=== PATIENT | male | born 1975 | race Caucasian/White ===

== ENCOUNTER 2016-11-17 00:42 | Emergency (ER) | payer BC, OTHER ==
[2016-11-17 00:49] VITALS: BP 124/88; PULSE 87; TEMP 97.6; BMI 30.3
--- NOTE | 2016-11-17 01:02 | PDOC ---
History of Present Illness - General Chief Complaint: Wound Stated Complaint: BURSITIS SURGERY/SUTURES TORE 2 DAYS AGO Time Seen by Provider: 11/17/16 00:45 History Source: Patient Exam Limitations: No Limitations - History of Present Illness Initial Comments: 11/17/16 00:57 41 yo M with no pmhx here s/p drainage of bursitis of the right elbow. was in [place], had I &D performed. was at home 2 days ago it released, stitches ripped. here tonight because was concerned. no f/c no pain. no purulent drainage. no other complaints. Past History - Past Medical History Allergies/Adverse Reactions: Allergies Allergy/AdvReac Type Severity Reaction Status Date / Time No Known Drug Allergies Allergy Verified 05/16/15 09:26 Home Medications: Ambulatory Orders Allopurinol [Zyloprim -] 400 mg PO DAILY 05/24/14 Rivaroxaban [Xarelto -] 20 mg PO DAILY 05/24/14 Asthma: No Cardiac Disorders: No DVT: Yes Diabetes: No HTN: No Hypercholesterolemia: No Suicide Attempt (Hx): No - Surgical History Lung Surgery: No (tonsilectomy) Orthopedic Surgery: Yes (left knee miniscus) - Immunization History Td Vaccination: Yes TDAP Vaccination: Yes Immunization Up to Date: Yes - Psycho/Social/Smoking Cessation Hx Anxiety: No Suicidal Ideation: No Smoking Status: No Smoking History: Never smoked Have you smoked in the past 12 months: No Number of Cigarettes Smoked Daily: 0 Cigars Per Day: 0 Information on smoking cessation initiated: No Hx Alcohol Use: No Drug/Substance Use Hx: No Substance Use Type: None Hx Substance Use Treatment: No Review of Systems - Review of Systems Constitutional: No: Chills, Diaphoresis, Fever Respiratory: No: Cough, Orthopnea Cardiac (ROS): No: Chest Pain, Edema Musculoskeletal: No: Back Pain, Joint Pain Integumentary: Yes: Other (laceration/ wound to right elbow). No: Bruising, Change in Color *Physical Exam - Vital Signs Last Vital Signs Temp Pulse Resp BP Pulse Ox 97.6 F 87 16 124/88 96 11/17/16 00:46 11/17/16 00:46 11/17/16 00:46 11/17/16 00:46 11/17/16 00:46 - Physical Exam General Appearance: Yes: Nourished Respiratory/Chest: positive: Lungs Clear, Normal Breath Sounds Cardiovascular: positive: Regular Rhythm, Regular Rate, S1, S2. negative: Edema Gastrointestinal/Abdominal: positive: Normal Bowel Sounds. negative: Tender, Flat Musculoskeletal: positive: Normal Inspection Extremity: positive: Normal Inspection, Other (right elbow, wound 2 cm gaping, draining serous fluid.) Integumentary: positive: Normal Color, Dry, Warm Neurologic: positive: Fully Oriented, Alert, Normal Mood/Affect Medical Decision Making - Medical Decision Making 11/17/16 01:02 pt with open wound right elbow, 2 days old. unable to stitch due to risk of infection. will apply sterile dressing. given plastic surgery followup. told to return for any signs of infection and keep clean and covered until followup. *DC/Admit/Observation/Transfer Diagnosis at time of Disposition: Dehiscence of wound - Discharge Dispostion Disposition: HOME Condition at time of disposition: Stable Admit: No - Referrals Referrals: Franky Lindquist MD [Staff Physician] - - Patient Instructions Printed Discharge Instructions: Wound Dehiscence Additional Instructions: follow up with dr lindquist. call to schedule. keep wound clean and dry. cover with sterile guaze and bne wrap. return for redness swelling or any concerns.
== END 2016-11-17 01:07 | disposition home or self-care (01) ==
LOC: FER 00:42
DX: T81.31XA Disruption of external operation (surgical) wound, not elsewhere classified, initial encounter (principal); Y83.8 Other surgical procedures as the cause of abnormal reaction of the patient, or of later complication, without mention of misadventure at the time of the procedure
CPT/HCPCS: 99281-25

== ENCOUNTER 2017-01-15 20:39 | Emergency (ER) | payer OTHER ==
--- NOTE | 2017-01-15 21:41 | PDOC ---
History of Present Illness - History of Present Illness Initial Comments: 01/15/17 21:46 The patient is a 39 year old male, with a significant past medical history of bilateral lower extremity DVT and gout, who presents to the emergency department with pain to his right foot since yesterday. The patient states he was gout free for years, until he got an upset stomach yesterday and drank the magnesium drink. He states he realized right after he drank the magnesium drink that it might exacerbate his gout. He reports developing pain and swelling to his right foot shortly after. He states medrol dose packs work best for my gout. He denies chest pain, shortness of breath, headache and dizziness. He denies fever, chills, nausea, vomit, diarrhea and constipation. He denies dysuria, frequency, urgency and hematuria. Allergies: None Past surgical history: Tonsillectomy, Left meniscus surgery Social history: He denies tobacco, alcohol and drug use <Judy Nguyen - Last Filed: 01/15/17 21:51> <Lilibeth Grier - Last Filed: 01/16/17 01:56> - General Chief Complaint: Pain Stated Complaint: POSS GOUT ATTACK Time Seen by Provider: 01/15/17 20:53 Past History <Judy Nguyen - Last Filed: 01/15/17 21:51> - Past Medical History Asthma: No Cardiac Disorders: No DVT: Yes Diabetes: No HTN: No Hypercholesterolemia: No - Surgical History Lung Surgery: No (tonsilectomy) Orthopedic Surgery: Yes (left knee miniscus) - Immunization History Td Vaccination: Yes TDAP Vaccination: Yes Immunization Up to Date: Yes - Suicide/Smoking/Psychosocial Hx Smoking Status: No Smoking History: Unknown if ever smoked Have you smoked in the past 12 months: No Number of Cigarettes Smoked Daily: 0 Cigars Per Day: 0 Information on smoking cessation initiated: No Hx Alcohol Use: No Drug/Substance Use Hx: No Substance Use Type: None Hx Substance Use Treatment: No <Lilibeth Grier - Last Filed: 01/16/17 01:56> - Past Medical History Allergies/Adverse Reactions: Allergies Allergy/AdvReac Type Severity Reaction Status Date / Time No Known Drug Allergies Allergy Verified 05/16/15 09:26 Home Medications: Ambulatory Orders Rivaroxaban [Xarelto -] 20 mg PO DAILY 05/24/14 Methylprednisolone [Medrol Dose Cezar] 4 mg PO ASDIR #21 tablet 01/15/17 Review of Systems - Review of Systems Able to Perform ROS?: Yes Comments:: 01/15/17 21:46 CONSTITUTIONAL: Absent: fever, no chills, no fatigue EYES: Absent: visual changes ENT: Absent: ear pain, no sore throat CARDIOVASCUL R: Absent: chest pain, no palpitations RESPIRATORY: Absent: cough, no SOB GI: Absent: abdominal pain, no nausea, no vomiting, no constipation, no diarrhea GENITOURINARY: Absent: dysuria, no frequency, no hematuria MUSKULOSKELETAL: (+) right foot pain and swelling, "Gout". Absent: back pain, no arthralgia, no myalgia SKIN: Absent: rash NEURO: Absent: headache <Judy Nguyen - Last Filed: 01/15/17 21:51> *Physical Exam - Vital Signs Last Vital Signs Temp Pulse Resp BP Pulse Ox 98.3 F 88 14 126/90 98 01/15/17 20:43 01/15/17 20:43 01/15/17 20:43 01/15/17 20:43 01/15/17 20:43 - Physical Exam Comments: 01/15/17 21:47 GENERAL: The patient is awake, alert, and fully oriented, in no acute distress. HEAD:[Normal with no signs of trauma. EYES: Pupils equal, round and reactive to light, extraocular movements intact, sclera anicteric, conjunctiva clear. EXTREMITIES: (+) 2cm x 2cm area of erythematous, markedly tender,and moderately edematous at the dorsal aspect by the base of 5th toe of right foot. Normal range of motion, NEUROLOGICAL: Normal speech, normal gait. PSYCH: Normal mood, normal affect. SKIN: Warm, Dry, normal turgor, no rashes or lesions noted. <Judy Nguyen - Last Filed: 01/15/17 21:51> - Vital Signs Last Vital Signs Temp Pulse Resp BP Pulse Ox 98.3 F 88 14 126/90 98 01/15/17 20:43 01/15/17 20:43 01/15/17 20:43 01/15/17 20:43 01/15/17 20:43 <Lilibeth Grier - Last Filed: 01/16/17 01:56> Medical Decision Making - Medical Decision Making Documentation has been prepared under my direction and personally reviewed by me in its entirety. I attest that this documented accurately reflects all work, treatment, procedures and medical decision making performed by me. As noted above, this 41-year-old man with a history of gout in the past presents with a few day history of painful, erythematous area at the base of the right fifth toe there has been no injury to this area and patient states that it feels very similar to previous episodes of acute gout. Patient believes that this episode resulted after he drank magnesium citrate a few days ago(treating constipation). Patient also stated that in the past, the most effective treatment for his acute episodes of gout was Medrol Dosepak Exam as noted Prescription for Medrol Dosepak sent to the patient's pharmacy. He should drink plenty fluids and avoid other triggers for acute gout. He should return to the emergency room if he has persistent pain/swelling/redness of the joint. He should follow-up with his general doctor within the next few days. <Lilibeth Grier - Last Filed: 01/16/17 01:56> *DC/Admit/Observation/Transfer - Attestations Scribe Attestion: 01/15/17 21:55 Documentation prepared by Judy Nguyen, acting as medical records field technician for Lilibeth Grier MD <Judy Nguyen - Last Filed: 01/15/17 21:51> <Lilibeth Grier - Last Filed: 01/16/17 01:56> Diagnosis at time of Disposition: Acute gout Qualifiers: Gout site: foot Gout etiology: drug-induced Laterality: right Qualified Code(s) : M10.271 - Drug-induced gout, right ankle and foot - Discharge Dispostion Disposition: HOME Condition at time of disposition: Stable - Prescriptions Prescriptions: Methylprednisolone [Medrol Dose Cezar] 4 mg PO ASDIR #21 tablet - Referrals Referrals: Fritz Ward MD [Primary Care Provider] - - Patient Instructions Printed Discharge Instructions: Gout Additional Instructions: Medrol Dosepak, tapering directed Drink plenty of fluids Return to ER if you have persistent pain/swelling/redness Follow-up with your general doctor within the next week
[2017-01-15 21:50] VITALS: BP 126/90; PULSE 88; TEMP 98.3; BMI 30.3
== END 2017-01-15 21:53 | disposition home or self-care (01) ==
LOC: FER 20:39
DX: M10.271 Drug-induced gout, right ankle and foot (principal); Z86.718 Personal history of other venous thrombosis and embolism; Z79.01 Long term (current) use of anticoagulants
CPT/HCPCS: 99282-25

== ENCOUNTER 2019-02-10 13:06 | Day surgery (SDC) | payer OTHER ==
[2019-02-08 11:42] VITALS: BMI 30.9
[2019-02-10] MEDS ORDERED: MIDAZOLAM HCL 2 MG/2 ML SINGLE DOSE VIAL ONE (16:46)
[2019-02-10] MEDS ORDERED: LIDOCAINE HCL 2% 100 MG/5 ML DISP.SYRIN ONE (17:37)
[2019-02-10] MEDS ORDERED: ceFAZolin SODIUM 1 GM VIAL ONE (17:43)
[2019-02-10] MEDS ORDERED: ONDANSETRON 4 MG/2 ML VIAL ONE (17:44)
[2019-02-10] MEDS ORDERED: DEXAMETHASONE SOD PHOSPHATE 4 MG/1 ML VIAL ONE (17:44)
[2019-02-10] MEDS ORDERED: KETOROLAC TROMETHAMINE 30 MG/1 ML VIAL ONE (17:44)
[2019-02-10] MEDS ORDERED: BUPIVACAINE HCL/PF 0.5% (5MG/ML) 10 ML VIAL IJ ONE (18:35)
[2019-02-10] MEDS ORDERED: ONDANSETRON 4 MG/2 ML VIAL IVPUSH PRN (18:56)
[2019-02-10] MEDS ORDERED: oxyCODONE HCL 5 MG TABLET PO PRN ×2 (18:56)
[2019-02-10] MEDS ORDERED: LACTATED RINGERS SOLUTION 1,000 ML IV SCH (19:00)
[2019-02-10] MEDS ORDERED: oxyCODONE HCL 5 MG TABLET ONE (19:53)
[2019-02-10 21:02] VITALS: TEMP 97.7
[2019-02-10 21:08] VITALS: BP 126/90; PULSE 83
--- NOTE | 2019-02-11 13:24 | OP ---
DATE OF OPERATION: 02/10/2019 PREOPERATIVE DIAGNOSES: 1. Right elbow gouty tophus. 2. Right elbow olecranon bursitis. POSTOPERATIVE DIAGNOSES: 1. Right elbow gouty tophus. 2. Right elbow olecranon bursitis. OPERATIVE PROCEDURE: 1. Excised right elbow gouty tophus. 2. Right elbow olecranon bursectomy. SURGEON: Olayinka Betancur MD CAR DROPPER: ANDREA Back ANESTHESIA: General. COMPLICATIONS: None. ESTIMATED BLOOD LOSS: Minimal. INDICATION FOR PROCEDURE: The patient is a 43-year-old male with the above finding, indicated for operative treatment. Risks, benefits, and alternatives were discussed with the patient at length. Proper informed consent was obtained. PROCEDURE: After proper identification of patient and correct operative site, patient was brought to the operating room and placed supine on the operative table. Prominences were well padded. Right upper extremity was prepped and draped in usual sterile fashion. Well-padded tourniquet was placed as well as a sterile prep. Esmarch bandage was used to exsanguinate the right upper extremity. Tourniquet was inflated to 250 mmHg. A curvilinear incision was made over the olecranon process, curving the incision laterally to avoid being directly over the elbow olecranon tip. The incision was taken sharply through the skin, with blunt and sharp dissection through the subcutaneous tissues and around the mass which was found to be gouty tophus. This was dissected carefully, especially on the ulnar side of the elbow. The ulnar nerve was carefully protected. Diffuse invasion of the skin and subcutaneous tissues and tendon was also noted by the gouty tissue, and this was debrided as well as possible while leaving vital structures intact. The olecranon bursa was also excised. The incision was then repaired in a [id number] fashion using 4-0 nylon sutures and 4-0 Vicryl sutures. Sterile dressings were applied. An elbow-extension splint was placed to protect the wound. The patient was reversed from anesthesia and brought to recovery in stable condition. He tolerated the procedure well. Ted Bianchi, the surgical first assistant, was integral throughout the procedure. Procedure could not have been performed without a skilled operative surgical first assistant. Fazal CASTILLO/[id number]
--- NOTE | 2019-02-15 17:32 | PATH ---
Surgical Pathology Report Patient Name: AMAURI TOVAR [facility]. Rec. #: [id number] /Age/Gender: 1975 (Age: 43) / M Account: [id number] Location: [facility] Taken: 02/10/2019 Received: 02/11/2019 Reported: 02/15/2019 Physicians: Olayinka Betancur M.D. Specimen(s) Received GOUTY TOPHUS RIGHT ELBOW Clinical History Right elbow olecranon gouty bursitis Final Diagnosis ELBOW, RIGHT, GOUTY TOPHUS, EXCISION: FIBROSYNOVIAL TISSUE WITH NODULAR DEPOSITS OF CRYSTALLINE MATERIAL SURROUNDED BY FIBROUS TISSUE, HISTIOCYTES AND GIANT CELLS; CONSISTENT WITH GOUTY TOPHI. Electronically Signed Abbey Gaines M.D. Gross Description Received in formalin labeled "gouty tophus right elbow," is a 4.8 x 4.0 x 1.7 cm kessler-yellow soft tissue mass. Sectioning reveals white, chalky parenchyma. Information Assistant sections are submitted in one cassette. /02/12/2019 [facility]/02/12/2019
== END 2019-02-10 20:30 | disposition home or self-care (01) ==
LOC: FASU 13:06
PROVIDERS: ATTEND Orthopaedic Surgery Hand Surgery
PROC: 0MB30ZZ Excision of Right Elbow Bursa and Ligament, Open Approach (ICD-10-PCS; principal; 2019-02-10 17:54)
DX: M1A.0211 Idiopathic chronic gout, right elbow, with tophus (tophi) (principal)
CPT/HCPCS: 88304-TC; 94760

== ENCOUNTER 2021-05-30 07:14 | Day surgery (SDC) | payer OTHER ==
[2021-05-24 12:42] VITALS: BMI 32.3
[2021-05-30] MEDS ORDERED: LIDOCAINE HCL 2% (20ML MULTI-DOSE VIAL) ONE (08:37)
[2021-05-30] MEDS ORDERED: ONDANSETRON 4 MG/2 ML VIAL IVPUSH PRN (08:41)
[2021-05-30] MEDS ORDERED: oxyCODONE HCL 5 MG TABLET PO PRN ×2 (08:41)
[2021-05-30] MEDS ORDERED: PROMETHAZINE HCL 25 MG/1 ML VIAL IVPUSH PRN (08:41)
[2021-05-30] MEDS ORDERED: PROPOFOL 20 ML ONE (08:44)
[2021-05-30] MEDS ORDERED: MIDAZOLAM HCL 2 MG/2 ML SINGLE DOSE VIAL ONE (08:44)
[2021-05-30] MEDS ORDERED: LACTATED RINGERS SOLUTION 1,000 ML IV SCH (08:45)
[2021-05-30] MEDS ORDERED: BUPIVACAINE HCL/PF 0.25% (2.5MG/ML) 10 ML VIAL ONE (09:30)
[2021-05-30] MEDS ORDERED: BUPIVACAINE HCL/PF 0.25% (2.5MG/ML) 10 ML VIAL IJ ONE (09:35)
[2021-05-30] MEDS ORDERED: oxyCODONE HCL 5 MG TABLET ONE (10:29)
[2021-05-30 10:55] VITALS: TEMP 97.7
[2021-05-30 11:18] VITALS: BP 142/90; PULSE 90
== END 2021-05-30 11:12 | disposition home or self-care (01) ==
LOC: FASU 07:14
PROVIDERS: ATTEND Orthopaedic Surgery Hand Surgery
PROC: 0LQ80ZZ Repair Left Hand Tendon, Open Approach (ICD-10-PCS; 2021-05-30)
PROC: 0LB80ZZ Excision of Left Hand Tendon, Open Approach (ICD-10-PCS; principal; 2021-05-30 08:59)
DX: D21.12 Benign neoplasm of connective and other soft tissue of left upper limb, including shoulder (principal); M1A.9XX1 Chronic gout, unspecified, with tophus (tophi); M66.242 Spontaneous rupture of extensor tendons, left hand
CPT/HCPCS: 88305-TC; 94760

== ENCOUNTER 2022-05-19 13:14 | Emergency (ER) | payer OTHER ==
[2022-05-19 13:26] VITALS: BP 125/98; PULSE 87; RESP 18; TEMP 97.8; BMI 30.9
[2022-05-19] MEDS ORDERED: INDOMETHACIN 50 MG CAPSULE PO ONE (13:49)
[2022-05-19] MEDS ORDERED: INDOMETHACIN 25 MG CAPSULE ONE (14:00)
[2022-05-19 14:23] LABS: HEMATOCRIT 42.5 % (35.4-49); HEMOGLOBIN 14.6 G/dL (11.7-16.9); MCH 27.9 pg (25.7-33.7); MCHC 34.4 g/dl (32.0-35.9); MEAN CELL VOLUME 81.3 fl (80-96); MEAN PLT VOLUME 8.7 fl (7.5-11.1); PLATELET COUNT 207.1 10^3/uL (134-434); RBC 5.23 10^6/uL (4.00-5.60); WHITE BLOOD COUNT 6.9 10^3/uL (4.0-10.8)
[2022-05-19 14:30] LABS: ALBUMIN 4.4 g/dl (3.4-5.0); BILIRUBIN,TOTAL 0.8 mg/dl (0.2-1); CALCIUM 9.9 mg/dl (8.5-10); CREATININE 0.9 mg/dl (0.55-1.3); PLATELET ESTIMATE ADEQUATE; TOT PROT 7.6 g/dl (6.4-8.2)
== END 2022-05-19 15:50 | disposition home or self-care (01) ==
LOC: FER 13:14
DX: M10.071 Idiopathic gout, right ankle and foot (principal); R74.01 Elevation of levels of liver transaminase levels
CPT/HCPCS: 36415; 80053; 85027; 99283-25